=== PATIENT | female | born 1940 | race Caucasian/White ===

== ENCOUNTER → 2017-09-01 | Outpatient (CLI) | payer MEDICAID ==
[2017-09-01 11:45] LABS: BILIRUBIN,URINE NEGATIVE (NEGATIVE); KETONES,URINE 1+ (NEGATIVE); LEUKOCYTE ESTERASE ,URINE 3+ (NEGATIVE); NITRITE,URINE POSITIVE (NEGATIVE); PH,URINE 5 (5-9); PROTEIN,URINE 2+ (NEGATIVE); UROBILINOGEN,URINE NORMAL (NORMAL)
[2017-09-01 11:56] LABS: WBC,URINE 50-100 /HPF
[2017-09-01 11:57] LABS: HYALINE CASTS, URINE RARE /LPF; SQUAMOUS EPITHELIAL CELL,UR >50 /HPF
== END ==
PROVIDERS: ATTEND Urology
DX: Z87.440 Personal history of urinary (tract) infections (principal)
CPT/HCPCS: 81000; 87088

== ENCOUNTER 2017-09-11 20:37 | Inpatient (IN) | payer MEDICARE, MEDICAID ==
[~2017-09-11] VITALS: Ht 167.6 cm; Wt 63.5 kg
[2017-09-11 20:52] LABS: BASOPHILS % (AUTO) 0 % (0-10); EOSINOPHILS % (AUTO) 8 % (0-10); LYMPHOCYTES % (AUTO) 40 % (12-44); MEAN CORPUSCULAR HEMOGLOBIN 33 PG (25-34); MEAN CORPUSCULAR HGB CONC 34 G/DL (32-36); MEAN CORPUSCULAR VOLUME 97 FL (80-99); MEAN PLATELET VOLUME 11.4 FL (7.4-10.4); MONOCYTES % (AUTO) 13 % (0-12); NEUTROPHILS # (AUTO) 3.9 X 10^3 (1.8-7.8); NEUTROPHILS % (AUTO) 38 % (42-75); PLATELET COUNT 237 10^3/uL (130-400); RED BLOOD COUNT 4.37 10^6/uL (4.35-5.85); RED CELL DISTRIBUTION WIDTH 12.9 % (10.0-14.5); WHITE BLOOD COUNT 10.1 10^3/uL (4.3-11.0)
[2017-09-11 20:53] LABS: EOSINOPHILS # (AUTO) 0.9 10^3/uL (0.0-0.3); MONOCYTES # (AUTO) 1.3 X 10^3 (0.0-1.0)
[2017-09-11 20:55] VITALS: BP 171/96
--- NOTE | 2017-09-11 20:55 | ED Neurological Problem ---
General Stated Complaint: POSS STROKE Source: EMS Exam Limitations: clinical condition, physical impairment History of Present Illness Time seen by provider: 20:30 Initial Comments Here by EMS from [facility] with report of altered mental status that appears to have been going on for several days but worse today. Unsure of last known well time. There is concerns about decreased movement on the right. Patient has history of stroke apparently on the right. Patient has advanced dementia but usually is up on her own. The nurse that was at the [facility] ton[facility] reports that she is not her typical self but was unable to state when she last was. No report of fever. Apparently she did not eat tonight. She has not taken her medications tonight. EMS reports essentially normal vital signs but altered mental status and decreased movement on the right. Timing/Duration: unknown, increasing Severity: moderate Associated Symptoms: confusion, weakness Allergies and Home Medications Allergies Coded Allergies: Sulfa (Sulfonamide Antibiotics) (Verified Allergy, Unknown, 09/11/17) Constitutional: see HPI, No fever, weakness Other Unable to complete review of systems due to altered mental status All Other Systems Reviewed Negative Unless Noted: No Past Roglejp-Viisgp-Soeufp Hx Patient Social History Smoking Status: Unknown if Ever Smoked Surgeries History of Surgeries: No (unknown) Cardiovascular History of Cardiac Disorders: Yes Cardiac Disorders: Hypertension Neurological History of Neurological Disord: Yes Neurological Disorders: Dementia, Stroke Genitourinary History of Genitourinary Disor: Yes Genitourinary Disorders: UTI-Chronic Gastrointestinal History of Gastrointestinal Di: Yes Gastrointestinal Disorders: Gastroesophageal Reflux Psychosocial History of Psychiatric Problem: Yes Behavioral Health Disorders: Anxiety, Depression Family Medical History Other History of her [facility] records. No previous history here. Findings per records reviewed. Physical Exam Vital Signs Vital Sign - Last 12Hours 09/11/17 20:53 Temp 97.2 Pulse 70 Resp 16 B/P (MAP) 171/96 Pulse Ox 96 O2 Delivery Room Air Capillary Refill : General Appearance: WD/WN, no apparent distress HEENT: PERRL/EOMI (pinpoint bilateral), pharynx normal, other (dry mucous membranes) Neck: full range of motion, supple Respiratory: lungs clear, normal breath sounds Cardiovascular: regular rate, rhythm, no murmur Peripheral Pulses: 2+ Dorsalis Pedis (R), 2+ Left Dors-Pedis (L), 2+ Radial Pulses (R), 2+ Radial Pulses (L) Gastrointestinal: non tender, soft Back: normal inspection, no CVA tenderness, no vertebral tenderness Extremities: non-tender, other (movement to both lower extremities noted and withdraws from pain in all 4 extremities. Decreased movement of the right arm noted.) Neurologic/Psychiatric: other (opens eyes with sternal rub and localizes to pain) Crainal Nerves: facial asymmetry (question of right facial droop) Coordination/Gait: other (moves bilateral lower extremities spontaneously as well as left upper extremity and occasionally right upper extremity) Motor/Sensory: other (unable to determine due to altered mental status) Skin: normal color, warm/dry Focused Exam Evaluation Lactate Level Laboratory Tests 09/11/17 22:55: Lactic Acid Level 1.43 Lactic Acid Level Laboratory Tests Test 09/11/17 22:55 Lactic Acid Level 1.43 MMOL/L (0.50-2.00) Progress/Results/Core Measures Results/Orders Lab Results Laboratory Tests Test 09/11/17 20:40 09/11/17 20:50 09/11/17 22:55 Range/Units White Blood Count 10.1 4.3-11.0 10^3/uL Red Blood Count 4.37 4.35-5.85 10^6/uL Hemoglobin 14.5 11.5-16.0 G/DL Hematocrit 42 35-52 % Mean Corpuscular Volume 97 80-99 FL Mean Corpuscular Hemoglobin 33 25-34 PG Mean Corpuscular Hemoglobin Concent 34 32-36 G/DL Red Cell Distribution Width 12.9 10.0-14.5 % Platelet Count 237 130-400 10^3/uL Mean Platelet Volume 11.4 H 7.4-10.4 FL Neutrophils (%) (Auto) 38 L 42-75 % Lymphocytes (%) (Auto) 40 12-44 % Monocytes (%) (Auto) 13 H 0-12 % Eosinophils (%) (Auto) 8 0-10 % Basophils (%) (Auto) 0 0-10 % Neutrophils # (Auto) 3.9 1.8-7.8 X 10^3 Lymphocytes # (Auto) 4.0 1.0-4.0 X 10^3 Monocytes # (Auto) 1.3 H 0.0-1.0 X 10^3 Eosinophils # (Auto) 0.9 H 0.0-0.3 10^3/uL Basophils # (Auto) 0.0 0.0-0.1 10^3/uL Prothrombin Time 16.2 H 12.2-14.7 SEC INR Comment 1.3 0.8-1.4 Activated Partial Thromboplast Time 27 24-35 SEC D-Dimer 0.33 0.00-0.49 UG/ML Sodium Level 143 135-145 MMOL/L Potassium Level 3.5 L 3.6-5.0 MMOL/L Chloride Level 106 98-107 MMOL/L Carbon Dioxide Level 26 21-32 MMOL/L Anion Gap 11 5-14 MMOL/L Blood Urea Nitrogen 25 H 7-18 MG/DL Creatinine 0.75 0.60-1.30 MG/DL Estimat Glomerular Filtration Rate > 60 BUN/Creatinine Ratio 33 Glucose Level 119 H 70-105 MG/DL Calcium Level 10.5 H 8.5-10.1 MG/DL Total Bilirubin 0.3 0.1-1.0 MG/DL Aspartate Amino Transf (AST/SGOT) 54 H 5-34 U/L Alanine Aminotransferase (ALT/SGPT) 56 H 0-55 U/L Alkaline Phosphatase 124 40-136 U/L Troponin I < 0.30 <0.30 NG/ML Total Protein 6.6 6.4-8.2 GM/DL Albumin 3.5 3.2-4.5 GM/DL Urine Color YELLOW Urine Clarity SLIGHTLY CLOUDY Urine pH 5 5-9 Urine Specific [place] 1.020 1.016-1.022 Urine Protein 2+ H NEGATIVE Urine Glucose (UA) NEGATIVE NEGATIVE Urine Ketones 1+ H NEGATIVE Urine Nitrite NEGATIVE NEGATIVE Urine Bilirubin NEGATIVE NEGATIVE Urine Urobilinogen 1 NORMAL MG/DL Urine Leukocyte Esterase 2+ H NEGATIVE Urine RBC (Auto) NEGATIVE NEGATIVE Urine RBC NONE /HPF Urine WBC 10-25 H /HPF Urine Squamous Epithelial Cells 2-5 /HPF Urine Crystals NONE /LPF Urine Bacteria TRACE /HPF Urine Casts NONE /LPF Urine Mucus SMALL H /LPF Urine Culture Indicated YES Lactic Acid Level 1.43 0.50-2.00 MMOL/L My Orders Orders - CHAGO PUENTE MD Cbc With Automated Diff (09/11/17 20:44) Protime With Inr (09/11/17 20:44) Partial Thromboplastin Time (09/11/17 20:44) Comprehensive Metabolic Panel (09/11/17 20:44) Fibrin Degradation Products (09/11/17 20:44) Troponin I (09/11/17 20:44) Ua Culture If Indicated (09/11/17 20:44) Chest 1 View, Ap/Pa Only (09/11/17 20:44) Ekg Tracing (09/11/17 20:44) Nothing By Mouth (09/12/17 Breakfast) Accucheck Stat ONCE (09/11/17 20:44) Saline Lock/Iv-Start (09/11/17 20:44) Saline Lock/Iv-Start (09/11/17 20:44) Vital Signs - Stroke Q15M (09/11/17 20:44) Ct Head Wo-R/O Stroke (09/11/17 20:44) O2 (09/11/17 20:44) Intake & Output 06,14,22 (09/11/17 20:44) Monitor-Rhythm Ecg Trace Only (09/11/17 20:44) Dysphagia Screening Tool (09/11/17 20:44) Ns Iv 500 Ml (Sodium Chloride 0.9%) (09/11/17 20:58) Urine Culture (09/11/17 20:50) Lactic Acid Analyzer (09/11/17 21:54) Blood Culture (09/11/17 21:54) Ceftriaxone Injection (Rocephin Injectio (09/12/17 00:00) Medications Given in ED Current Medications Medications Dose Ordered Sig/Yuliana Route Start Time Stop Time Status Last Admin Dose Admin Sodium Chloride 500 ml @ 0 mls/hr Q0M ONCE IV 09/11/17 20:58 09/11/17 20:59 DC 09/11/17 22:17 0 MLS/HR Vital Signs/I&O Vital Sign - Last 12Hours 09/11/17 09/11/17 20:53 20:55 Temp 97.2 Pulse 70 70 Resp 16 16 B/P (MAP) 171/96 171/96 Pulse Ox 96 96 O2 Delivery Room Air Progress Note : Progress Note Seen and evaluated on arrival by EMS. Patient is outside the TPA window due to unknown last well time and appears to be 3 days at least but certainly greater than 3 hours. Stroke scale very high due to patient's inability to follow commands. Stroke protocol initiated. Normal saline 500 mL bolus ordered. Monitor patient. Blood cultures and lactic acid initiated after urine noted to have probable urinary tract infection. 2330: Rocephin 1 g IV ordered. Patient still: Minimally responsive although she has rolled over in bed on her own. Unable to get her to take oral antibiotics. I did discuss the case with Dr. Stuart [phone] and she accepts patient for admission, inpatient status. We will continue fluids and Rocephin IV. Patient currently listed as full code but would probably be better represented by DO NOT RESUSCITATE status. Consider palliative care consult. All this was discussed with Dr. Stuart and she agrees. She will look at this further in the morning. Patient does have infection with minimal SIRS criteria. She does not meet requirements for high volume fluid resuscitation at this time. ECG Initial ECG Impression Date: Sep 11, 2017 Initial ECG Impression Time: 22:29 Initial ECG Rate: 56 Initial ECG Rhythm: Normal Sinus Initial ECG Comparisson: No Previous ECG Available Comment Sinus rhythm with right bundle branch block. No evidence of ST elevation MD. Left axis deviation. LVH noted. No previous available for comparison. Interpreted by me. Diagnostic Imaging Diagonstic Imaging: Xray Plain Films/CT/US/NM/MRI: chest Comments NAME: KINGSLEY KEN [employer] REC#: [id number] PT STATUS: REG ER : 1940 PHYSICIAN: CHAGO PUENTE MD ADMIT DATE: 09/11/17/ER Signed Date of Exam: 09/11/17 CHEST 1 VIEW, AP/PA ONLY INDICATION: Altered metal status. COMPARISON: None. EXAMINATION: Single frontal view of the chest was obtained. FINDINGS: Normal heart size and pulmonary vascularity. The lungs are well aerated and clear. No large pleural effusion or pneumothorax is seen. The visualized osseous structures show no acute abnormalities. There is calcified aortic atherosclerosis. IMPRESSION: No acute cardiopulmonary process. Dictated by: Dictated on workstation # [id number] Dict: 09/11/172108 Trans: 09/11/172153 Interpreted by: ANJU KESSLER MD Electronically signed by: ANJU KESSLER MD 09/11/172153 Diagonstic Imaging: CT Plain Films/CT/US/NM/MRI: head Comments NAME: KINGSLEY KEN [facility] REC#: [id number] PT STATUS: REG ER : 1940 PHYSICIAN: CHAGO PUENTE MD ADMIT DATE: 09/11/17/ER Signed Date of Exam: 09/11/17 CT HEAD WO-R/O STROKE INDICATION: Altered mental status. TECHNIQUE: Routine non contrast-enhanced axial images were obtained from the skull base to the vertex. COMPARISON: None. FINDINGS: The ventricles and cortical sulci are diffusely prominent, compatible with age-related volume loss. There are confluent areas of abnormal, low attenuation in the periventricular white matter. This is consistent with small vessel ischemic changes; age-indeterminate. There is no prior study available for comparison. Multiple old small lacunar infarcts of bilateral basal ganglia are also noted. There is no midline shift or mass-effect. No acute intra-axial hemorrhage is seen. There are no abnormal areas of increased or decreased density to suggest acute hemorrhage or edema. No extra-axial masses or collections are present. The bony calvarium is intact. The visualized paranasal sinuses are unremarkable. The mastoid air cells are clear. IMPRESSION: 1. No acute intracranial abnormality. No CT evidence of mass, acute infarct or intracranial hemorrhage. 2. Small vessel ischemic changes in the periventricular and subcortical white matter; likely chronic. 3. Multiple old small lacunar infarcts in bilateral basal ganglia. Dictated by: Dictated on workstation # [id number] Dict: 09/11/172102 Trans: 09/11/172156 Interpreted by: ANJU KESSLER MD Electronically signed by: ANJU KESSLER MD 09/11/172156 Departure Communication (Admissions) Time/Spoke to Admitting Phy: 23:50 Impression Impression: Primary Impression: Urinary tract infection Qualified Codes: N30.00 - Acute cystitis without hematuria Additional Impression: Dementia Qualified Codes: F03.90 - Unspecified dementia without behavioral disturbance Disposition: ADMITTED INPATIENT Condition: Stable Admissions Decision to Admit Reason: Admit from ER (General) Decision to Admit/Date: Sep 11, 2017 Time/Decision to Admit Time: 23:50 Departure-Patient Inst. Referrals: IRMA SCHROEDER DO (PCP/Family) Primary Care Physician CHAGO PUENTE MD Sep 11, 2017 20:55
[2017-09-11 20:58] LABS: INR 1.3 (0.8-1.4); PROTHROMBIN TIME PATIENT 16.2 SEC (12.2-14.7)
[2017-09-11] MEDS ORDERED: NS IV 500 ML 500 ML IV ONE (20:58)
[2017-09-11 20:59] LABS: BILIRUBIN,URINE NEGATIVE (NEGATIVE); KETONES,URINE 1+ (NEGATIVE); LEUKOCYTE ESTERASE ,URINE 2+ (NEGATIVE); NITRITE,URINE NEGATIVE (NEGATIVE); PH,URINE 5 (5-9); PROTEIN,URINE 2+ (NEGATIVE); UROBILINOGEN,URINE 1 MG/DL (NORMAL)
--- NOTE | 2017-09-11 21:07 | Diagnostic Imaging Report ---
INDICATION: Altered mental status. TECHNIQUE: Routine non contrast-enhanced axial images were obtained from the skull base to the vertex. COMPARISON: None. FINDINGS: The ventricles and cortical sulci are diffusely prominent, compatible with age-related volume loss. There are confluent areas of abnormal, low attenuation in the periventricular white matter. This is consistent with small vessel ischemic changes; age-indeterminate. There is no prior study available for comparison. Multiple old small lacunar infarcts of bilateral basal ganglia are also noted. There is no midline shift or mass-effect. No acute intra-axial hemorrhage is seen. There are no abnormal areas of increased or decreased density to suggest acute hemorrhage or edema. No extra-axial masses or collections are present. The bony calvarium is intact. The visualized paranasal sinuses are unremarkable. The mastoid air cells are clear. IMPRESSION: 1. No acute intracranial abnormality. No CT evidence of mass, acute infarct or intracranial hemorrhage. 2. Small vessel ischemic changes in the periventricular and subcortical white matter; likely chronic. 3. Multiple old small lacunar infarcts in bilateral basal ganglia. Dictated by: Dictated on workstation # [id number]
[2017-09-11 21:08] LABS: ALANINE AMINOTRANSFERASE 56 U/L (0-55); ALBUMIN 3.5 GM/DL (3.2-4.5); ANION GAP 11 MMOL/L (5-14); ASPARTATE AMINO TRANSFERASE 54 U/L (5-34); BILIRUBIN,TOTAL 0.3 MG/DL (0.1-1.0); BLOOD UREA NITROGEN 25 MG/DL (7-18); BUN/CREATININE RATIO 33; CALCIUM 10.5 MG/DL (8.5-10.1); CARBON DIOXIDE 26 MMOL/L (21-32); CHLORIDE 106 MMOL/L (98-107); CREATININE SERUM 0.75 MG/DL (0.60-1.30); GFR ESTIMATED > 60; GLUCOSE 119 MG/DL (70-105); POTASSIUM 3.5 MMOL/L (3.6-5.0); SODIUM 143 MMOL/L (135-145); TOTAL PROTEIN 6.6 GM/DL (6.4-8.2)
--- NOTE | 2017-09-11 21:10 | Diagnostic Imaging Report ---
INDICATION: Altered metal status. COMPARISON: None. EXAMINATION: Single frontal view of the chest was obtained. FINDINGS: Normal heart size and pulmonary vascularity. The lungs are well aerated and clear. No large pleural effusion or pneumothorax is seen. The visualized osseous structures show no acute abnormalities. There is calcified aortic atherosclerosis. IMPRESSION: No acute cardiopulmonary process. Dictated by: Dictated on workstation # [id number]
[2017-09-11 21:15] LABS: TROPONIN I < 0.30 NG/ML (<0.30)
[2017-09-12] VITALS (7 sets, daily range): BP systolic 132–191; BP diastolic 61–88
[2017-09-12] MEDS ORDERED: cefTRIAXone INJECTION 1,000 MG in NS (IVPB) 50 ML IV ONE ×2
[2017-09-12] MEDS ORDERED: NS IV 1000 ML 2,041.17 ML IV PRN
[2017-09-12] MEDS ORDERED: CATHETER FLUSH 10 ML SYR IV PRN (02:00)
[2017-09-12] MEDS: NS IV 1000 ML 1,000 ML IV SCH ×2 (03:00→15:04)
[2017-09-12] MEDS: CATHETER FLUSH 10 ML SYR IV SCH ×3 (03:00→20:22)
[2017-09-12 06:10] LABS: BASOPHILS % (AUTO) 0 % (0-10); EOSINOPHILS # (AUTO) 0.7 10^3/uL (0.0-0.3); EOSINOPHILS % (AUTO) 7 % (0-10); LYMPHOCYTES # (AUTO) 3.4 X 10^3 (1.0-4.0); LYMPHOCYTES % (AUTO) 35 % (12-44); MEAN CORPUSCULAR HEMOGLOBIN 33 PG (25-34); MEAN CORPUSCULAR HGB CONC 34 G/DL (32-36); MEAN CORPUSCULAR VOLUME 97 FL (80-99); MEAN PLATELET VOLUME 11.9 FL (7.4-10.4); MONOCYTES # (AUTO) 1.2 X 10^3 (0.0-1.0); MONOCYTES % (AUTO) 13 % (0-12); NEUTROPHILS # (AUTO) 4.2 X 10^3 (1.8-7.8); NEUTROPHILS % (AUTO) 45 % (42-75); PLATELET COUNT 196 10^3/uL (130-400); RED BLOOD COUNT 4.44 10^6/uL (4.35-5.85); RED CELL DISTRIBUTION WIDTH 12.9 % (10.0-14.5); WHITE BLOOD COUNT 9.5 10^3/uL (4.3-11.0)
[2017-09-12 06:32] LABS: ALANINE AMINOTRANSFERASE 54 U/L (0-55); ALBUMIN 3.5 GM/DL (3.2-4.5); ANION GAP 13 MMOL/L (5-14); ASPARTATE AMINO TRANSFERASE 53 U/L (5-34); BILIRUBIN,TOTAL 0.4 MG/DL (0.1-1.0); BLOOD UREA NITROGEN 17 MG/DL (7-18); BUN/CREATININE RATIO 26; CALCIUM 9.7 MG/DL (8.5-10.1); CARBON DIOXIDE 24 MMOL/L (21-32); CHLORIDE 106 MMOL/L (98-107); CREATININE SERUM 0.65 MG/DL (0.60-1.30); GFR ESTIMATED > 60; GLUCOSE 92 MG/DL (70-105); POTASSIUM 2.8 MMOL/L (3.6-5.0); SODIUM 143 MMOL/L (135-145); TOTAL PROTEIN 6.8 GM/DL (6.4-8.2)
[2017-09-12 06:36] LABS: EOSINOPHILS % (MANUAL) 14 %; LYMPHOCYTES % (MANUAL) 20 %; NEUTROPHILS % (MANUAL) 45 %
[2017-09-12 06:37] LABS: REACTIVE LYMPHOCYTES 15 %
[2017-09-12] MEDS ORDERED: TRAZ100T92 PO (10:12)
[2017-09-12] MEDS ORDERED: FOLI1TAB24 PO (10:12)
[2017-09-12] MEDS ORDERED: DIVA250T2 PO (10:12)
[2017-09-12] MEDS ORDERED: CHOL10003 PO (10:12)
[2017-09-12] MEDS ORDERED: SERT25TA PO (10:12)
[2017-09-12] MEDS ORDERED: OXB5TCR PO (10:12)
[2017-09-12] MEDS ORDERED: FAMO20TA3 PO (10:12)
[2017-09-12] MEDS ORDERED: OLAN2.5T3 PO (10:12)
[2017-09-12] MEDS ORDERED: PHEN100C4 PO (10:12)
[2017-09-12] MEDS ORDERED: CLON0.1T PO (10:12)
[2017-09-12] MEDS ORDERED: RIVA1PAT3 TD (10:12)
[2017-09-12] MEDS ORDERED: MEMA10TA2 PO (10:12)
[2017-09-12] MEDS ORDERED: MIRT15TA PO (10:12)
[2017-09-12] MEDS ORDERED: METO50TA2 PO (10:12)
[2017-09-12] MEDS ORDERED: ACET325T49 PO (10:12)
[2017-09-12] MEDS ORDERED: MELA3TAB PO (10:12)
[2017-09-12] MEDS ORDERED: ASPI-586 PO (10:12)
--- NOTE | 2017-09-12 12:06 | History & Physical-Hospitalist ---
HPI History of Present Illness: HPI/Chief Complaint CC: Altered mental status with UTI in end-stage dementia patient HPI: This is [facility] 77[facility] that is known to me from multiple [facility] admissions due to dementia with behaviors who [facility] due to altered mental status. She was found to have UTI but due to such altered mental status and unable to become alert enough she was admitted to the hospital for IV abx and monitoring. She is currently a 1-on-1 sitter due to severe confusion and fall risk and is currently eating lunch. She appears to recognize me but is non-verbal currently as she is most of the time when she is in [facility] in [facility] [place] I have reviewed her prior UCx and agree with the empiric abx given. I have also reconciled home meds per [facility] sheet and have restarted all of those meds. Source: RN/MD Exam Limitations: other (dementia, non-verbal) Date Seen 09/12/17 Time Seen by Provider: 11:00 Attending Physician Angie Stuart DO PCP Guille George DO Referring Physician Date of Admission Sep 11, 2017 at 23:30 Home Medications & Allergies Home Medications Reviewed patient Home Medication Reconciliation Form Allergies Allergies Coded Allergies Sulfa (Sulfonamide Antibiotics) (Verified Allergy, Unknown, 09/11/17) Past Rhaozgg-Ephznn-Qdprwq Hx Patient Social History Marrital Status: single Alcohol Use: Denies Use Recreational Drug Use: No Smoking Status: Former Smoker Physical Abuse Screen: No Sexual Abuse: No Recent Foreign Travel: No Contact w/other who traveled: No Recent Hopitalizations: No Recent Infectious Disease Expo: No Immunizations Up To Date Date of Influenza Vaccine: Jul 20, 2017 Seasonal Allergies Seasonal Allergies: No Surgeries No (unknown) Respiratory No Cardiovascular Yes Hypertension Neurological Yes Dementia, Stroke Genitourinary Yes UTI-Chronic Gastrointestinal Yes Gastroesophageal Reflux Musculoskeletal No Endocrine History of Endocrine Disorders: No HEENT History of HEENT Disorders: No Cancer No Psychosocial History of Psychiatric Problem: Yes Behavioral Health Disorders: Anxiety, Depression Integumentary History of Skin or Integumenta: No Review of Systems ROS-Unable to Obtain: Unable to ascertain due to dementia Constitutional: see HPI Physical Exam Physical Exam Vital Signs Vital Sign - Last 12Hours 09/11/17 20:53 Temp 97.2 Pulse 70 Resp 16 B/P (MAP) 171/96 Pulse Ox 96 O2 Delivery Room Air Capillary Refill : Less Than 3 Seconds General Appearance: No Apparent Distress, WD/WN, Chronically ill Eyes: Bilateral Eye Normal Inspection, Bilateral Eye PERRL HEENT: PERRL/EOMI, Normal ENT Inspection, Pharynx Normal Neck: Full Range of Motion, Normal Inspection, Non Tender, Supple, Carotid Bruit Respiratory: Chest Non Tender, Lungs Clear, Normal Breath Sounds, No Accessory Muscle Use, No Respiratory Distress Cardiovascular: Regular Rate, Rhythm, No Edema, No Gallop, No JVD, No Murmur, Normal Peripheral Pulses Gastrointestinal: Normal Bowel Sounds, No Organomegaly, No Pulsatile Mass, Non Tender, Soft Back: Normal Inspection, No CVA Tenderness, No Vertebral Tenderness Extremity: Normal Capillary Refill, Normal Inspection, Normal Range of Motion, Non Tender, No Calf Tenderness, No Pedal Edema Neurologic/Psychiatric: Alert, No Motor/Sensory Deficits, Depressed Affect, Other (non-verbal, demented) Skin: Normal Color, Warm/Dry Lymphatic: No Adenopathy Results Results/Procedures Lab Laboratory Tests 09/11/17 20:40 09/12/17 05:32 Assessment/Plan Admission Diagnosis Assessment: Altered mental status due to UTI Dementia severe with behavior disturbances HTN Assessment and Plan Plan: Restart home meds Monitor closely Fall risk Await UCx Clinical Quality Measures DVT/VTE Risk/Contraindication: Risk Factor Score Per Nursin RFS Level Per Nursing on Admit: 4+=Very High ANGIE STUART DO Sep 12, 2017 12:06
[2017-09-12] MEDS: ACETAMINOPHEN 325 MG TABLET/CAPLET (TYLENOL) PO SCH ×2 (13:15→20:19)
[2017-09-12] MEDS: cloNIDine 0.1 MG (CATAPRES) TAB PO SCH ×2 (13:15→20:19)
[2017-09-12] MEDS: PHENYTOIN 100 MG (DILANTIN) CAP PO SCH ×2 (13:15→20:19)
[2017-09-12] MEDS: DIVALPROEX 250 MG DELAYED RELEASE (DEPAKOTE) TAB PO SCH ×3 (13:15→20:19)
[2017-09-12] MEDS: OLANZapine 2.5 MG (ZyPREXA) TAB PO SCH ×2 (13:15→20:18)
[2017-09-12] MEDS: meTOprolol TARTRATE 50 MG (LOPRESSOR) TAB PO SCH (20:18)
[2017-09-12] MEDS: MELATONIN 3 MG TABLET PO SCH (20:19)
[2017-09-12] MEDS: MIRTAZAPINE 15 MG (REMERON) TAB PO SCH (20:19)
[2017-09-12] MEDS: traZODone 100 MG (DESYREL) TAB PO SCH (20:19)
[2017-09-12] MEDS: MEMANTINE 10 MG (NAMENDA) TABLET PO SCH (20:19)
[2017-09-12] MEDS ORDERED: cefTRIAXone INJECTION 1,000 MG in NS (IVPB) 50 ML IV SCH (21:00)
[2017-09-12] MEDS ORDERED: NON-FORMULARY MEDICATION 1 EA EA (Mirtazapine (Remeron) 15 MG) PO SCH (21:00)
[2017-09-13] VITALS (7 sets, daily range): BP systolic 134–204; BP diastolic 60–84
[2017-09-13] MEDS: NS IV 1000 ML 1,000 ML IV SCH (04:16)
[2017-09-13 05:11] LABS: BASOPHILS # (AUTO) 0.1 10^3/uL (0.0-0.1); BASOPHILS % (AUTO) 1 % (0-10); EOSINOPHILS % (AUTO) 11 % (0-10); LYMPHOCYTES # (AUTO) 4.3 X 10^3 (1.0-4.0); LYMPHOCYTES % (AUTO) 48 % (12-44); MEAN CORPUSCULAR HEMOGLOBIN 33 PG (25-34); MEAN CORPUSCULAR HGB CONC 34 G/DL (32-36); MEAN CORPUSCULAR VOLUME 98 FL (80-99); MEAN PLATELET VOLUME 11.2 FL (7.4-10.4); MONOCYTES # (AUTO) 1.1 X 10^3 (0.0-1.0); MONOCYTES % (AUTO) 13 % (0-12); NEUTROPHILS # (AUTO) 2.6 X 10^3 (1.8-7.8); NEUTROPHILS % (AUTO) 28 % (42-75); PLATELET COUNT 173 10^3/uL (130-400); RED BLOOD COUNT 4.33 10^6/uL (4.35-5.85); WHITE BLOOD COUNT 9.1 10^3/uL (4.3-11.0)
[2017-09-13 05:30] LABS: ANION GAP 10 MMOL/L (5-14); ASPARTATE AMINO TRANSFERASE 47 U/L (5-34); BILIRUBIN,TOTAL 0.3 MG/DL (0.1-1.0); CALCIUM 9.7 MG/DL (8.5-10.1); CARBON DIOXIDE 21 MMOL/L (21-32); CHLORIDE 109 MMOL/L (98-107); POTASSIUM 3.1 MMOL/L (3.6-5.0); SODIUM 140 MMOL/L (135-145)
[2017-09-13 05:46] LABS: ALANINE AMINOTRANSFERASE 47 U/L (0-55); ALBUMIN 3.1 GM/DL (3.2-4.5); BLOOD UREA NITROGEN 10 MG/DL (7-18); BUN/CREATININE RATIO 16; CREATININE SERUM 0.62 MG/DL (0.60-1.30); GFR ESTIMATED > 60; GLUCOSE 67 MG/DL (70-105)
[2017-09-13] MEDS: CATHETER FLUSH 10 ML SYR IV SCH ×3 (06:30→20:20)
[2017-09-13] MEDS ORDERED: OXYBUTYNIN ER 5 MG (DITROPAN XL) TAB NON-FORMULARY PO SCH (09:00)
[2017-09-13] MEDS ORDERED: NON-FORMULARY MEDICATION 1 EA EA (Sertraline HCl (Zoloft) 25 MG) PO SCH (09:00)
[2017-09-13] MEDS: meTOprolol TARTRATE 50 MG (LOPRESSOR) TAB PO SCH ×2 (09:05→20:14)
[2017-09-13] MEDS: RIVASTIGMINE 9.5 MG PATCH (EXELON) NON-FORMULARY TD SCH (09:05)
[2017-09-13] MEDS: FOLIC ACID 1 MG TAB PO SCH (09:05)
[2017-09-13] MEDS: DIVALPROEX 250 MG DELAYED RELEASE (DEPAKOTE) TAB PO SCH ×4 (09:05→20:14)
[2017-09-13] MEDS: OXYBUTYNIN (DITROPAN) 5 MG TAB PO SCH ×2 (09:05→20:14)
[2017-09-13] MEDS: FAMOTIDINE 20 MG (PEPCID) TABLET PO SCH (09:05)
[2017-09-13] MEDS: ASPIRIN E.C. 81 MG (ECOTRIN) TAB PO SCH (09:05)
[2017-09-13] MEDS: MEMANTINE 10 MG (NAMENDA) TABLET PO SCH ×2 (09:05→20:14)
[2017-09-13] MEDS: VITAMIN D3 1,000 UNITS (CHOLECALCIFEROL) TABLET PO SCH (09:05)
[2017-09-13] MEDS: PHENYTOIN 100 MG (DILANTIN) CAP PO SCH ×3 (09:06→20:14)
[2017-09-13] MEDS: EXELON PATCH REMOVAL TP SCH (09:06)
[2017-09-13] MEDS: OLANZapine 2.5 MG (ZyPREXA) TAB PO SCH ×3 (09:06→20:14)
[2017-09-13] MEDS: SERTRALINE 50 MG (ZOLOFT) TABLET PO SCH (09:06)
[2017-09-13] MEDS: ACETAMINOPHEN 325 MG TABLET/CAPLET (TYLENOL) PO SCH ×4 (09:06→20:38)
[2017-09-13] MEDS: cloNIDine 0.1 MG (CATAPRES) TAB PO SCH ×3 (09:06→20:14)
[2017-09-13] MEDS ORDERED: KCL 20 MEQ TAB (K-DUR) PO NR (10:30)
--- NOTE | 2017-09-13 11:33 | Progress Note-Hospitalist ---
Progress Note HPI/CC on Admission CC: Altered mental status with UTI in end-stage dementia patient HPI: This is a 77yoWF [facility] patient of Dr Skinner that is known to me from multiple [facility] admissions due to dementia with behaviors who presented to the ER by [facility] staff due to altered mental status. She was found to have UTI but due to such altered mental status and unable to become alert enough she was admitted to the hospital for IV abx and monitoring. She is currently a 1-on-1 sitter due to severe confusion and fall risk and is currently eating lunch. She appears to recognize me but is non-verbal currently as she is most of the time when she is in [facility] in [facility] [place]. I have reviewed her prior UCx and agree with the empiric abx given. I have also reconciled home meds per [facility] sheet and have restarted all of those meds. Progress Notes/Assess & Plan Date Seen 09/13/17 Time Seen by Provider: 11:10 Admission Dx/Process Assessment: Altered mental status due to UTI Dementia severe with behavior disturbances HTN Diagonsis/Assessment & Plan Pt sleeping soundly after she ate bfast and was up and around earlier No pain is reported 1-on-[address] due to major fall risk UCx NGTD so will DC abx Dispo tomorrow Did not sleep at all last night AFVSS, sleeping soundly RRR, CTAB No edema Assessment: Altered mental status due to abnl UA but UCx NGTD today so will DC abx Dementia severe with behavior disturbances with night-day confusion HTN Plan: Restarted home meds Monitor closely Fall risk DC abx COURTNEY JARAMILLO DO Sep 13, 2017 11:33
[2017-09-13] MEDS: traZODone 100 MG (DESYREL) TAB PO SCH (20:14)
[2017-09-13] MEDS: MIRTAZAPINE 15 MG (REMERON) TAB PO SCH (20:14)
[2017-09-13] MEDS: MELATONIN 3 MG TABLET PO SCH ×2 (20:19→20:38)
[2017-09-14 04:14] VITALS: BP 129/67
[2017-09-14] MEDS: CATHETER FLUSH 10 ML SYR IV SCH ×2 (05:58→14:00)
--- NOTE | 2017-09-14 07:46 | Progress Note (SOAP) ---
Subjective Time Seen by Provider: 07:44 Subjective/Events-last exam patient resting comfortably this morning. Patient has UTI with culture being negative. Patient has severe dementia. Hypertension history. To monitor patient this morning. Get child protective services social worker involved with family. Plan to discharge today or tomorrow Objective Exam Vital Signs Date Time Temp Pulse Resp B/P (MAP) Pulse Ox O2 Delivery O2 Flow Rate FiO2 09/14/17 04:14 97.1 54 16 129/67 96 Room Air 09/13/17 23:23 97.9 54 16 146/60 96 Room Air 09/13/17 20:10 Room Air 09/13/17 19:51 97.8 66 14 183/76 96 Room Air 09/13/17 15:08 97.5 51 16 152/65 98 Room Air 09/13/17 12:00 97.8 52 18 134/72 98 Room Air 09/13/17 08:00 Room Air 09/13/17 08:00 98.0 54 16 204/84 99 Room Air Capillary Refill : Less Than 3 SecondsLess Than 3 Seconds General Appearance: No Apparent Distress, WD/WN HEENT: Normal ENT Inspection Neck: Normal Inspection Respiratory: No Accessory Muscle Use, No Respiratory Distress Cardiovascular: Regular Rate, Rhythm, No Murmur Gastrointestinal: non tender, soft Results Lab Microbiology 09/11/17 Blood Culture - Preliminary, Resulted No growth 09/11/17 Urine Culture - Final, Complete NO GROWTH Assessment/Plan Assessment/Plan Assess & Plan/Chief Complaint UTI. Severe dementia. Mental status. Hypertension history. administrative services manager to get in touch with family. Plan to discharge today or tomorrow depending how she acts this morning Clinical Quality Measures DVT/VTE Risk/Contraindication: Risk Factor Score Per Nursin RFS Level Per Nursing on Admit: 4+=Very High IRMA SCHROEDER DO Sep 14, 2017 07:46
[2017-09-14 09:03] VITALS: BP 138/80
[2017-09-14] MEDS: RIVASTIGMINE 9.5 MG PATCH (EXELON) NON-FORMULARY TD SCH (09:14)
[2017-09-14] MEDS: OXYBUTYNIN (DITROPAN) 5 MG TAB PO SCH (09:14)
[2017-09-14] MEDS: ACETAMINOPHEN 325 MG TABLET/CAPLET (TYLENOL) PO SCH ×2 (09:14→12:46)
[2017-09-14] MEDS: FAMOTIDINE 20 MG (PEPCID) TABLET PO SCH (09:14)
[2017-09-14] MEDS: DIVALPROEX 250 MG DELAYED RELEASE (DEPAKOTE) TAB PO SCH ×2 (09:14→12:45)
[2017-09-14] MEDS: PHENYTOIN 100 MG (DILANTIN) CAP PO SCH ×2 (09:14→12:45)
[2017-09-14] MEDS: FOLIC ACID 1 MG TAB PO SCH (09:15)
[2017-09-14] MEDS: VITAMIN D3 1,000 UNITS (CHOLECALCIFEROL) TABLET PO SCH (09:15)
[2017-09-14] MEDS: MEMANTINE 10 MG (NAMENDA) TABLET PO SCH (09:15)
[2017-09-14] MEDS: ASPIRIN E.C. 81 MG (ECOTRIN) TAB PO SCH (09:15)
[2017-09-14] MEDS: OLANZapine 2.5 MG (ZyPREXA) TAB PO SCH ×2 (09:15→12:45)
[2017-09-14] MEDS: cloNIDine 0.1 MG (CATAPRES) TAB PO SCH ×2 (09:15→12:45)
[2017-09-14] MEDS: meTOprolol TARTRATE 50 MG (LOPRESSOR) TAB PO SCH (09:15)
[2017-09-14] MEDS: SERTRALINE 50 MG (ZOLOFT) TABLET PO SCH (09:15)
[2017-09-14] MEDS: EXELON PATCH REMOVAL TP SCH (09:20)
[2017-09-14] MEDS ORDERED: NON-FORMULARY MEDICATION 1 EA EA TOP SCH (09:30)
[2017-09-14 09:59] LABS: MEAN PLATELET VOLUME 10.8 FL (7.4-10.4); RED BLOOD COUNT 4.24 10^6/uL (4.35-5.85); WHITE BLOOD COUNT 10.9 10^3/uL (4.3-11.0)
[2017-09-14] MEDS ORDERED: LINDANE 1% SHAMPOO (KWELL) 60ML BTL TOP NR (10:15)
[2017-09-14] MEDS ORDERED: PERMETHRIN (NIX) 1% LOTION 60 ML BTL TOP NR (10:15)
[2017-09-14 10:20] LABS: ALANINE AMINOTRANSFERASE 41 U/L (0-55); ALBUMIN 3.4 GM/DL (3.2-4.5); ANION GAP 9 MMOL/L (5-14); ASPARTATE AMINO TRANSFERASE 35 U/L (5-34); BILIRUBIN,TOTAL 0.3 MG/DL (0.1-1.0); BLOOD UREA NITROGEN 13 MG/DL (7-18); BUN/CREATININE RATIO 18; CALCIUM 10.3 MG/DL (8.5-10.1); CARBON DIOXIDE 27 MMOL/L (21-32); CHLORIDE 107 MMOL/L (98-107); CREATININE SERUM 0.72 MG/DL (0.60-1.30); GFR ESTIMATED > 60; GLUCOSE 97 MG/DL (70-105); POTASSIUM 3.5 MMOL/L (3.6-5.0); SODIUM 143 MMOL/L (135-145); TOTAL PROTEIN 6.4 GM/DL (6.4-8.2)
[2017-09-14] MEDS ORDERED: PERMETHRIN TOP (13:55)
[2017-09-14] MEDS ORDERED: [UNRECOGNIZED DRUG - CODE] TOP (13:55)
[2017-09-14 16:00] VITALS: BP 177/80
--- NOTE | 2017-09-15 07:22 | Discharge Summary ---
Diagnosis/Chief Complaint Date of Admission Sep 11, 2017 at 23:30 Date of Discharge Sep 14, 2017 at 17:50 Discharge Date: Sep 14, 2017 Discharge Time: 07:20 Discharge Diagnosis altered mental status. Advanced dementia. Confusion. Hypertension. History of GERD. Personal history of urinary tract infection. Personal history of TIA Discharge Summary Discharge Physical Examination Allergies: Coded Allergies: Sulfa (Sulfonamide Antibiotics) (Verified Allergy, Unknown, 09/11/17) Vitals & I&Os Vital Signs Date Time Temp Pulse Resp B/P (MAP) Pulse Ox O2 Delivery O2 Flow Rate FiO2 09/14/17 17:56 09/14/17 16:00 98.1 56 18 97 Room Air Hospital Course patient in hospital did improve. Patient stable. Patient moving around and walking Labs (last 24 hrs) Laboratory Tests 09/11/17 20:40: White Blood Count 10.1, Red Blood Count 4.37, Hemoglobin 14.5, Hematocrit 42, Mean Corpuscular Volume 97, Mean Corpuscular Hemoglobin 33, Mean Corpuscular Hemoglobin Concent 34, Red Cell Distribution Width 12.9, Platelet Count 237, Mean Platelet Volume 11.4H, Neutrophils (%) (Auto) 38L, Lymphocytes (%) (Auto) 40, Monocytes (%) (Auto) 13H, Eosinophils (%) (Auto) 8, Basophils (%) (Auto) 0, Neutrophils # (Auto) 3.9, Lymphocytes # (Auto) 4.0, Monocytes # (Auto) 1.3H, Eosinophils # (Auto) 0.9H, Basophils # (Auto) 0.0, Prothrombin Time 16.2H, INR Comment 1.3, Activated Partial Thromboplast Time 27, D-Dimer 0.33, Sodium Level 143, Potassium Level 3.5L, Chloride Level 106, Carbon Dioxide Level 26, Anion Gap 11, Blood Urea Nitrogen 25H, Creatinine 0.75, Estimat Glomerular Filtration Rate > 60, BUN/Creatinine Ratio 33, Glucose Level 119H, Calcium Level 10.5H, Total Bilirubin 0.3, Aspartate Amino Transf (AST/SGOT) 54H, Alanine Aminotransferase (ALT/SGPT) 56H, Alkaline Phosphatase 124, Troponin I < 0.30, Total Protein 6.6, Albumin 3.5 09/11/17 20:50: Urine Color YELLOW, Urine Clarity SLIGHTLY CLOUDY, Urine pH 5, Urine Specific [place] 1.020, Urine Protein 2+H, Urine Glucose (UA) NEGATIVE, Urine Ketones 1+H , Urine Nitrite NEGATIVE, Urine Bilirubin NEGATIVE, Urine Urobilinogen 1, Urine Leukocyte Esterase 2+H, Urine RBC (Auto) NEGATIVE, Urine RBC NONE, Urine WBC 10- 25H, Urine Squamous Epithelial Cells 2-5, Urine Crystals NONE, Urine Bacteria TRACE, Urine Casts NONE, Urine Mucus SMALLH, Urine Culture Indicated YES 09/11/17 22:55: Lactic Acid Level 1.43 09/12/17 05:32: White Blood Count 9.5, Red Blood Count 4.44, Hemoglobin 14.7, Hematocrit 43, Mean Corpuscular Volume 97, Mean Corpuscular Hemoglobin 33, Mean Corpuscular Hemoglobin Concent 34, Red Cell Distribution Width 12.9, Platelet Count 196, Mean Platelet Volume 11.9H, Neutrophils (%) (Auto) 45, Lymphocytes (%) (Auto) 35 , Monocytes (%) (Auto) 13H, Eosinophils (%) (Auto) 7, Basophils (%) (Auto) 0, Neutrophils # (Auto) 4.2, Lymphocytes # (Auto) 3.4, Monocytes # (Auto) 1.2H, Eosinophils # (Auto) 0.7H, Basophils # (Auto) 0.0, Sodium Level 143, Potassium Level 2.8L, Chloride Level 106, Carbon Dioxide Level 24, Anion Gap 13, Blood Urea Nitrogen 17, Creatinine 0.65, Estimat Glomerular Filtration Rate > 60, BUN/ Creatinine Ratio 26, Glucose Level 92, Calcium Level 9.7, Total Bilirubin 0.4, Aspartate Amino Transf (AST/SGOT) 53H, Alanine Aminotransferase (ALT/SGPT) 54, Alkaline Phosphatase 127, Total Protein 6.8, Albumin 3.5, Neutrophils % (Manual ) 45, Lymphocytes % (Manual) 20, Monocytes % (Manual) 6, Eosinophils % (Manual) 14, Reactive Lymphocytes 15, Blood Morphology Comment NORMAL 09/13/17 04:56: White Blood Count 9.1, Red Blood Count 4.33L, Hemoglobin 14.4, Hematocrit 43, Mean Corpuscular Volume 98, Mean Corpuscular Hemoglobin 33, Mean Corpuscular Hemoglobin Concent 34, Red Cell Distribution Width 13.0, Platelet Count 173, Mean Platelet Volume 11.2H, Neutrophils (%) (Auto) 28L, Lymphocytes (%) (Auto) 48H, Monocytes (%) (Auto) 13H, Eosinophils (%) (Auto) 11H, Basophils (%) (Auto) 1, Neutrophils # (Auto) 2.6, Lymphocytes # (Auto) 4.3H, Monocytes # (Auto) 1.1H , Eosinophils # (Auto) 1.0H, Basophils # (Auto) 0.1, Sodium Level 140, Potassium Level 3.1L, Chloride Level 109H, Carbon Dioxide Level 21, Anion Gap 10 , Blood Urea Nitrogen 10, Creatinine 0.62, Estimat Glomerular Filtration Rate > 60, BUN/Creatinine Ratio 16, Glucose Level 67L, Calcium Level 9.7, Total Bilirubin 0.3, Aspartate Amino Transf (AST/SGOT) 47H, Alanine Aminotransferase ( ALT/SGPT) 47, Alkaline Phosphatase 114, Total Protein 6.0L, Albumin 3.1L 09/14/17 09:52: White Blood Count 10.9, Red Blood Count 4.24L, Hemoglobin 14.0, Hematocrit 41, Mean Corpuscular Volume 97, Mean Corpuscular Hemoglobin 33, Mean Corpuscular Hemoglobin Concent 34, Red Cell Distribution Width 13.0, Platelet Count 202, Mean Platelet Volume 10.8H, Sodium Level 143, Potassium Level 3.5L, Chloride Level 107, Carbon Dioxide Level 27, Anion Gap 9, Blood Urea Nitrogen 13, Creatinine 0.72, Estimat Glomerular Filtration Rate > 60, BUN/Creatinine Ratio 18, Glucose Level 97, Calcium Level 10.3H, Total Bilirubin 0.3, Aspartate Amino Transf (AST/SGOT) 35H, Alanine Aminotransferase (ALT/SGPT) 41, Alkaline Phosphatase 124, Total Protein 6.4, Albumin 3.4 Microbiology 09/11/17 Blood Culture - Preliminary, Resulted No growth 09/11/17 Urine Culture - Final, Complete NO GROWTH Laboratory Tests 09/11/17 20:40 09/12/17 05:32 09/13/17 04:56 09/14/17 09:52 Pending Labs Microbiology Date/Time Source Procedure Growth Status 09/11/17 22:55 Peripheral Rt Ac Blood Culture - Preliminary No growth Resulted 09/11/17 22:50 Peripheral Lt Hand Blood Culture - Preliminary No growth Resulted 09/11/17 20:50 Urine Clean Catch Urine Culture - Final NO GROWTH Complete Laboratory Tests 09/11/17 20:40: White Blood Count 10.1, Red Blood Count 4.37, Hemoglobin 14.5, Hematocrit 42, Mean Corpuscular Volume 97, Mean Corpuscular Hemoglobin 33, Mean Corpuscular Hemoglobin Concent 34, Red Cell Distribution Width 12.9, Platelet Count 237, Mean Platelet Volume 11.4, Neutrophils (%) (Auto) 38, Lymphocytes (%) (Auto) 40 , Monocytes (%) (Auto) 13, Eosinophils (%) (Auto) 8, Basophils (%) (Auto) 0, Neutrophils # (Auto) 3.9, Lymphocytes # (Auto) 4.0, Monocytes # (Auto) 1.3, Eosinophils # (Auto) 0.9, Basophils # (Auto) 0.0, Prothrombin Time 16.2, INR Comment 1.3, Activated Partial Thromboplast Time 27, D-Dimer 0.33, Sodium Level 143, Potassium Level 3.5, Chloride Level 106, Carbon Dioxide Level 26, Anion Gap 11, Blood Urea Nitrogen 25, Creatinine 0.75, Estimat Glomerular Filtration Rate > 60, BUN/Creatinine Ratio 33, Glucose Level 119, Calcium Level 10.5, Total Bilirubin 0.3, Aspartate Amino Transf (AST/SGOT) 54, Alanine Aminotransferase (ALT/SGPT) 56, Alkaline Phosphatase 124, Troponin I < 0.30, Total Protein 6.6, Albumin 3.5 09/11/17 20:50: Urine Color YELLOW, Urine Clarity SLIGHTLY CLOUDY, Urine pH 5, Urine Specific [place] 1.020, Urine Protein 2+, Urine Glucose (UA) NEGATIVE, Urine Ketones 1+, Urine Nitrite NEGATIVE, Urine Bilirubin NEGATIVE, Urine Urobilinogen 1, Urine Leukocyte Esterase 2+, Urine RBC (Auto) NEGATIVE, Urine RBC NONE, Urine WBC 10- 25, Urine Squamous Epithelial Cells 2-5, Urine Crystals NONE, Urine Bacteria TRACE, Urine Casts NONE, Urine Mucus SMALL, Urine Culture Indicated YES 09/11/17 22:55: Lactic Acid Level 1.43 09/12/17 05:32: White Blood Count 9.5, Red Blood Count 4.44, Hemoglobin 14.7, Hematocrit 43, Mean Corpuscular Volume 97, Mean Corpuscular Hemoglobin 33, Mean Corpuscular Hemoglobin Concent 34, Red Cell Distribution Width 12.9, Platelet Count 196, Mean Platelet Volume 11.9, Neutrophils (%) (Auto) 45, Lymphocytes (%) (Auto) 35 , Monocytes (%) (Auto) 13, Eosinophils (%) (Auto) 7, Basophils (%) (Auto) 0, Neutrophils # (Auto) 4.2, Lymphocytes # (Auto) 3.4, Monocytes # (Auto) 1.2, Eosinophils # (Auto) 0.7, Basophils # (Auto) 0.0, Sodium Level 143, Potassium Level 2.8, Chloride Level 106, Carbon Dioxide Level 24, Anion Gap 13, Blood Urea Nitrogen 17, Creatinine 0.65, Estimat Glomerular Filtration Rate > 60, BUN/ Creatinine Ratio 26, Glucose Level 92, Calcium Level 9.7, Total Bilirubin 0.4, Aspartate Amino Transf (AST/SGOT) 53, Alanine Aminotransferase (ALT/SGPT) 54, Alkaline Phosphatase 127, Total Protein 6.8, Albumin 3.5, Neutrophils % (Manual ) 45, Lymphocytes % (Manual) 20, Monocytes % (Manual) 6, Eosinophils % (Manual) 14, Reactive Lymphocytes 15, Blood Morphology Comment NORMAL 09/13/17 04:56: White Blood Count 9.1, Red Blood Count 4.33, Hemoglobin 14.4, Hematocrit 43, Mean Corpuscular Volume 98, Mean Corpuscular Hemoglobin 33, Mean Corpuscular Hemoglobin Concent 34, Red Cell Distribution Width 13.0, Platelet Count 173, Mean Platelet Volume 11.2, Neutrophils (%) (Auto) 28, Lymphocytes (%) (Auto) 48 , Monocytes (%) (Auto) 13, Eosinophils (%) (Auto) 11, Basophils (%) (Auto) 1, Neutrophils # (Auto) 2.6, Lymphocytes # (Auto) 4.3, Monocytes # (Auto) 1.1, Eosinophils # (Auto) 1.0, Basophils # (Auto) 0.1, Sodium Level 140, Potassium Level 3.1, Chloride Level 109, Carbon Dioxide Level 21, Anion Gap 10, Blood Urea Nitrogen 10, Creatinine 0.62, Estimat Glomerular Filtration Rate > 60, BUN/ Creatinine Ratio 16, Glucose Level 67, Calcium Level 9.7, Total Bilirubin 0.3, Aspartate Amino Transf (AST/SGOT) 47, Alanine Aminotransferase (ALT/SGPT) 47, Alkaline Phosphatase 114, Total Protein 6.0, Albumin 3.1 09/14/17 09:52: White Blood Count 10.9, Red Blood Count 4.24, Hemoglobin 14.0, Hematocrit 41, Mean Corpuscular Volume 97, Mean Corpuscular Hemoglobin 33, Mean Corpuscular Hemoglobin Concent 34, Red Cell Distribution Width 13.0, Platelet Count 202, Mean Platelet Volume 10.8, Sodium Level 143, Potassium Level 3.5, Chloride Level 107, Carbon Dioxide Level 27, Anion Gap 9, Blood Urea Nitrogen 13, Creatinine 0.72, Estimat Glomerular Filtration Rate > 60, BUN/Creatinine Ratio 18, Glucose Level 97, Calcium Level 10.3, Total Bilirubin 0.3, Aspartate Amino Transf (AST/SGOT) 35, Alanine Aminotransferase (ALT/SGPT) 41, Alkaline Phosphatase 124, Total Protein 6.4, Albumin 3.4 Discussion & Recommendations 2 office in one week Discharge Home Medications: Active Scripts Active [Permethrin] 60 ML Liqd 0 Ml TOP UD REPEAT IN 1 WEEK (09/21/17) [place] 60 Ml Shampoo 0 Ml TOP UD REPEAT IN 1 WEEK (09/21/17) Reported Depakote (Divalproex Sodium) 250 Mg Tablet.dr 250 Mg PO QID Zyprexa (Olanzapine) 2.5 Mg Tablet 2.5 Mg PO TID Dilantin (Phenytoin Sodium Extended) 100 Mg Capsule 100 Mg PO TID Clonidine HCl 0.1 Mg Tablet 0.1 Mg PO TID Acetaminophen 325 Mg Tablet 650 Mg PO TID Namenda (Memantine HCl) 10 Mg Tablet 10 Mg PO BID Metoprolol Tartrate 50 Mg Tablet 50 Mg PO BID Vitamin D3 (Cholecalciferol (Vitamin D3)) 1,000 Unit Tablet 1,000 Unit PO DAILY Remeron (Mirtazapine) 15 Mg Tablet 15 Mg PO HS Melatonin 3 Mg Tablet 3 Mg PO HS Folic Acid 1 Mg Tablet 1 Mg PO DAILY Acid Commercial Producer (FAMOTIDINE) (Famotidine) 20 Mg Tablet 20 Mg PO DAILY Exelon (Rivastigmine) 9.5 Mg Patch 9.5 Mg TD DAILY Ditropan Xl (Oxybutynin Chloride) 5 Mg Tab 5 Mg PO DAILY Aspir 81 (Aspirin) 81 Mg Tablet.dr 81 Mg PO DAILY Instructions to patient/family Please see electronic discharge instructions given to patient. Clinical Quality Measures DVT/VTE Risk/Contraindication: Risk Factor Score Per Nursin RFS Level Per Nursing on Admit: 4+=Very High IRMA SCHROEDER DO Sep 15, 2017 07:22
== END 2017-09-14 17:50 | DRG 690 ==
LOC: ER 20:37 → EDUNIT# 20:37 → 4TH 23:30
PROVIDERS: ADMIT Internal Medicine; ATTEND Internal Medicine
DX: N39.0 Urinary tract infection, site not specified (principal); F03.91 Unspecified dementia, unspecified severity, with behavioral disturbance; I10 Essential (primary) hypertension; K21.9 Gastro-esophageal reflux disease without esophagitis; F41.9 Anxiety disorder, unspecified; F32.9 Major depressive disorder, single episode, unspecified; Z86.73 Personal history of transient ischemic attack (TIA), and cerebral infarction without residual deficits; Z87.891 Personal history of nicotine dependence; Z87.440 Personal history of urinary (tract) infections
CPT/HCPCS: 36415; 70450; 71010; 80053; 81000; 83605; 84484; 85007; 85025; 85027; 85379; 85610; 85730; 87040; 87088; 93005; 93041